=== PATIENT | female | born 1985 | race Caucasian/White ===

== ENCOUNTER 2016-12-13 14:54 | Inpatient (IN) | payer BC ==
[~2016-12-13] VITALS: Ht 180.3 cm; Wt 113.0 kg
[~2016-12-13 14:54] MED LIST: AMOX500C6; HYDR-1666; OMEP-28; SUCR1ORA
[2016-12-13 15:56] VITALS: Ht 180.3 cm; Wt 113.0 kg
[2016-12-13] MEDS ORDERED: ONDANSETRON 4 MG TAB PO PRN (16:30)
[2016-12-13] MEDS ORDERED: morphine 4 MG/ML VIAL IV PRN (16:30)
[2016-12-13] MEDS ORDERED: HYDROCODONE/APAP (5/325) TAB PO PRN (16:30)
[2016-12-13] MEDS ORDERED: DOCUSATE SODIUM 100 MG CAP PO PRN (16:30)
[2016-12-13] MEDS ORDERED: NACL 0.9% 3 ML SYG IV SCH (16:30)
[2016-12-13 16:59] VITALS: BP 131/76; RESP 22
[2016-12-13] MEDS ORDERED: VANCOMYCIN IV PER PHARMACY XX SCH (17:00)
[2016-12-13] MEDS ORDERED: LORAZEPAM 0.5 MG TAB PO PRN (17:00)
[2016-12-13] MEDS: AMPICILLIN/SULB 3 GM/NS (PMX) 100 ML IVPB SCH (17:53)
[2016-12-13] MEDS: ACETAMINOPHEN 325 MG TAB PO PRN (18:00)
[2016-12-13] MEDS ORDERED: VANCOMYCIN 2 GM in SOD CHLORIDE 0.9% 500 ML IVPB SCH (18:15)
[2016-12-13 18:40] LABS: BASOPHILS % 0.3 % (0.0-2.0); EOSINOPHILS # 0.1 10^3/ul (0.0-0.5); EOSINOPHILS % 1.3 % (0.0-7.0); HEMOGLOBIN 12.2 g/dl (12.0-16.0); LYMPHOCYTES # 2.1 10^3/ul (0.8-2.9); LYMPHOCYTES % 27.3 % (15.0-51.0); MEAN CORPUSCULAR HEMOGLOBIN 28.6 pg (29.0-33.0); MEAN CORPUSCULAR VOLUME 86.7 fl (82.0-101.0); MEAN PLATELET VOLUME 9.6 fl (7.4-10.4); MONOCYTE # 0.4 10^3/ul (0.3-0.9); MONOCYTES % 5.2 % (0.0-11.0); NEUTROPHILS % 65.6 % (39.0-77.0); PLATELET COUNT 281 10^3/UL (140-415); RED BLOOD COUNT 4.27 10^6/ul (4.20-5.40); RED CELL DISTRIBUTION WIDTH 13.1 % (11.5-14.5); WHITE BLOOD COUNT 7.6 10^3/ul (4.8-10.8)
[2016-12-13 19:07] LABS: ALBUMIN 4.2 g/dl (3.3-4.9); ALBUMIN/GLOBULIN RATIO 1.16; BILIRUBIN,INDIRECT 0.2 mg/dl (0-1.1); BILIRUBIN,TOTAL 0.2 mg/dl (0.2-1.3); CALCIUM 8.9 mg/dl (8.4-10.2); CREATININE 0.72 mg/dl (0.44-1.00); MAGNESIUM 2.1 mg/dl (1.7-2.5); POTASSIUM 4.6 mmol/L (3.5-5.1); TOTAL PROTEIN 7.8 g/dl (6.1-8.1)
--- NOTE | 2016-12-13 19:07 | RADRPT ---
PROCEDURE: Ultrasound right wrist. CLINICAL INDICATION: Right wrist pain and swelling, status post fog bite. TECHNIQUE: Prajapati scale and color flow images of the left wrist were obtained. COMPARISON: None available FINDINGS: A 1.9 x 0.9 x 1.5 cm heterogeneously hypoechoic potential collection is identified in the subcutaneo us soft tissues of the wrist in the region of the patient's dog bite. Soft tissue edema in this [place] on is observed. The visualized right radial artery appears patent. IMPRESSION: 1.9 cm heterogeneously hypoechoic, potential collection in the subcutaneous soft tissues in the [place] on of the patient's dog bite. This might could reflect a soft tissue hematoma. Superimposed infect ion cannot be excluded. Soft tissue edema over the wrist. If further characterization is needed CT or MRI could be helpful. RPTAT: AA .Haile Duke MD, Date Time Electronically viewed and signed by .Haile Duke MD, on 12/13/2016 19:06 .P/
[2016-12-13 19:24] LABS: T3 UPTAKE 32.8 % (23.5-40.5)
[2016-12-13 19:38] LABS: THYROID STIMULATING HORMONE 0.72 MIU/L (0.465-4.680)
[2016-12-13 20:00] VITALS: BP 121/69; RESP 16
[2016-12-14] MEDS: AMPICILLIN/SULB 3 GM/NS (PMX) 100 ML IVPB SCH ×4 (00:24→21:39)
[2016-12-14] MEDS: DIPHENHYDRAMINE 25 MG CAP PO PRN ×2 (01:15→22:22)
[2016-12-14 02:36] VITALS: BP 119/55; RESP 16
[2016-12-14] MEDS: VANCOMYCIN 1.25 GM in SOD CHLORIDE 0.9% 250 ML IVPB SCH ×2 (04:36→11:13)
[2016-12-14 07:42] VITALS: BP 134/78; RESP 18
[2016-12-14] MEDS ORDERED: morphine 2 MG INJ IV PRN (11:00)
--- NOTE | 2016-12-14 13:55 | PN ---
DATE: 12/14/2016 SUBJECTIVE DATA: The patient has less pain, right wrist. No fever or chills. OBJECTIVE DATA: Temperature 98.2, blood pressure 134/78, O2 sat 97 percent. Chest clinically clear. Right wrist shows swelling of the right wrist with moderate tenderness. No discharge. LABORATORY AND DIAGNOSTIC DATA: WBC count is 7.6, hematocrit 37, platelet count is 281,000. Ultrasound of the right wrist shows a 1.9 cm fluid collection, soft-tissue hematoma likely. Soft- tissue edema over the wrist. IMPRESSION: 1. Status post dog bite with cellulitis, right wrist, query abscess. Patient tolerating vancomycin and Unasyn well. 2. Prediabetic state with a hemoglobin A1c of 6.6 and strong family history of diabetes mellitus. PLAN: Had a long discussion with the patient regarding the diet and the need to lose weight and needs to get started on metformin. Potential complication of diabetes including neuropathy, retinopathy, renal failure, strokes discussed the patient. The patient's dietary habits reviewed and appropriate suggestions made. Will follow up with a dietary consultation in due course. Continue IV antibiotics for now. Await for blood cultures and wound cultures. Dictated By: Jose Naylor MD /rosy/rochelle /Document#: [id number]
[2016-12-14 14:00] VITALS: BP 121/69; RESP 18
--- NOTE | 2016-12-14 14:24 | CONS ---
Date/Time of Note Date/Time of Note DATE: 12/14/16 TIME: 14:12 Assessment/Plan Assessment/Plan Additional Assessment/Plan 31y/o female with: 1. Dog bite on anterior right wrist, improved. No evidence of joint infection and it appears to have been controlled on Augmentin, or at least significantly improved overnight on vancomycin and Unasyn. Patient states that it has been improving with decreased pain and erythema since initiation of Augmentin. I do not see anything that requires drainage. Would favor continued clinical monitoring. 2. Pre-diabetes. patient is aware, as per Dr. Naylor. RECOMMENDATIONS: 1. May discharge to home when Dr. Naylor is comfortable with discharge 2. Continue UNASYN 3g IV q6h while hospitalized 3. Transition back to AUGMENTIN 875mg PO BID to complete a further seven days of therapy at discharge 4. Discontinue vancomycin now (done) Consultation Date/Type/Reason Admit Date/Time Dec 13, 2016 at 15:17 Date of Consultation: Dec 14, 2016 Type of Consultation: Infectious Diseases Reason for Consultation Dog bite Referring Provider: CHARLIE NAYLOR MD Hx of Present Illness Ms. Clifford is a 31y/o female without PMH who was bitten by a dog about 6 days prior to admission. Approximately 4 hours after the bite to the right wrist, the pain increased to the point that she sought treatment at an where she was prescribed Augmentin. She saw her PMD Dr. Naylor five days prior to admission and again the day of admission. He was concerned that the wound had not improved significantly and admitted the patient for IV antibiotics. 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 She now has normal ROM and minimal pain at the bite site with ROM. She may have had some purulent drainage from the puncture wounds earlier in the week, now unsure. Has been dressing with neosporin. Denies F, C, myalgia, arthralgia (outside of affected joint), N, V, D, anorexia, ANGELES, cough, CP, rash. Of note, her HgA1C is elevated. 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 Exam/Review of Systems Vital Signs Vitals Vital Signs Date Time Temp Pulse Resp B/P Pulse Ox O2 Delivery O2 Flow Rate FiO2 12/14/16 07:42 98.2 79 18 134/78 97 Intake and Output 12/13/16 12/13/16 12/14/16 15:00 23:00 07:00 Intake Total 600 ml 1550 ml Output Total 400 ml Balance 600 ml 1150 ml Exam Constitutional: alert, oriented, well developed Psych: nl mood/affect, no complaints Head: atraumatic, normocephalic Eyes: EOMI, PERRL, nl conjunctiva, nl lids, nl sclera ENMT: nl external ears & nose, nl lips & teeth, nl nasal mucosa & septum Neck: non-tender, supple Respiratory: clear to auscultation, normal air movement Cardiovascular: nl pulses, regular rate and rhythm Gastrointestinal: nl liver, spleen, non-tender, soft Musculoskeletal: nl extremities to inspection, nl gait and stance Extremities: normal pulses Neurological: TAX ADVISOR II-XII intact, nl mental status, nl speech, nl strength Skin: nl turgor, No rash or lesions Lymph: nl lymph nodes Additional Comments right wrist - two puncture wounds anteriorly with minimal fluctuance below but an area of induration or hardening SQ, unable to express any purulence, blood or serous fluid from the puncture wounds. There is no surrounding erythema, a line drawn further up arm denotes area of prior erythema extension. No irritability of the wrist or fingers nor elbow, no e/o lymphangitis. Results Result Diagram: 12/13/16182812/13/161828 Results 24 hrs Laboratory Tests Test 12/13/16 18:29 White Blood Count 7.6 Red Blood Count 4.27 Hemoglobin 12.2 Hematocrit 37.0 Mean Corpuscular Volume 86.7 Mean Corpuscular Hemoglobin 28.6 L Mean Corpuscular Hemoglobin Concent 33.0 Red Cell Distribution Width 13.1 Platelet Count 281 Mean Platelet Volume 9.6 Neutrophils % 65.6 Lymphocytes % 27.3 Monocytes % 5.2 Eosinophils % 1.3 Basophils % 0.3 Nucleated Red Blood Cells % 0.0 Neutrophils # 5.0 Lymphocytes # 2.1 Monocytes # 0.4 Eosinophils # 0.1 Basophils # 0.0 Nucleated Red Blood Cells # 0.0 Sodium Level 141 Potassium Level 4.6 Chloride Level 101 Carbon Dioxide Level 23 Anion Gap 22 H Blood Urea Nitrogen 12 Creatinine 0.72 Glucose Level 141 Hemoglobin A1c 6.2 H Calcium Level 8.9 Magnesium Level 2.1 Total Bilirubin 0.2 Direct Bilirubin 0.00 Indirect Bilirubin 0.2 Aspartate Amino Transf (AST/SGOT) 42 Alanine Aminotransferase (ALT/SGPT) 34 Alkaline Phosphatase 58 Total Protein 7.8 Albumin 4.2 Globulin 3.60 H Albumin/Globulin Ratio 1.16 Thyroid Stimulating Hormone (TSH) 0.720 Free Thyroxine Index 2.85 Thyroxine (T4) 8.7 Triiodothyronine (T3) Uptake 32.8 Medications Medications Current Medications Ondansetron HCl (Zofran Tab) 4 mg Q6H PRN PO NAUSEA AND/OR VOMITING; Start 12/13 at 16:30 Acetaminophen (Tylenol Tab) 650 mg Q6H PRN PO PAIN LEVEL 1-3 OR FEVER Last administered on 12/13/16 18:00; Admin Dose 650 MG; Start 12/13/16 at 16:30 Acetaminophen/ Hydrocodone Bitart ([place] (5/325)) 1 tab Q6H PRN PO MODERATE PAIN LEVEL 4-6; Start 12/13/16 at 16:30 Docusate Sodium (Colace) 100 mg Q12H PRN PO CONSTIPATION; Start 12/13/16 at 16: 30 Lorazepam 0.5 mg 0.5 mg QID PRN PO ANXIETY Last administered on 12/13/16 22:01 ; Admin Dose 0.5 MG; Start 12/13/16 at 17:00 Vancomycin HCl/ Sodium Chloride (Vancocin/NS) 250 ml @ 83.333 mls/ hr Q8H IVPB Last administered on 12/14/16 11:13; Admin Dose 83.333 MLS/HR; Start 12/14/16 at 03:00 Diphenhydramine HCl (Benadryl) 25 mg Q4H PRN PO ITCHING Last administered on 01:15; Admin Dose 25 MG; Start 12/14/16 at 01:00 Morphine Sulfate 2 mg 2 mg Q4H PRN IV SEVERE PAIN LEVEL 7-10; Start 12/14/16 at 11:00 Ampicillin Sodium/ Sulbactam Sodium (Unasyn 3gm/NS (Pmx)) 100 ml @ 100 mls/hr QID@02,08,14,22 IVPB ; Start 12/14/16 at 14:00 Miscellaneous Information (*Rx Drug Level Order Reminder*) VANCO TROUGH @ 1, 800 ON... ONCE ONCE XX ; Start 12/14/16 at 18:00; Stop 12/14/16 at 18:01 Procedures Procedures ultrasoundofthe wristreviewed RADHA HERNDON Dec 14, 2016 14:24
--- NOTE | 2016-12-14 15:59 | HP ---
DATE OF ADMISSION: 12/13/2016 HISTORY OF PRESENT ILLNESS: The patient is a 31-year-old lady well known to me from previous outpatient follow up, presenting with right wrist wound with failed outpatient treatment following a dog bite. The patient was trying to break up a fight between her dog and another dog about 6 days ago and 1 of the dogs bit her right wrist. The patient was subsequently seen in the urgent care and placed on amoxicillin 500 mg t.i.d., and the patient was seen in my office 3 days ago and was advised to continue the same medication. When seen today, she had more swelling and pain of the right wrist with erythema, and patient was directly admitted for failed outpatient treatment and for further evaluation of the wound and for parenteral antibiotics after cultures. The patient has a history of bronchial asthma. REVIEW OF SYSTEMS: HEAD: No history of headache numbness. EYES: No blurry vision or glaucoma. ENT: Noncontributory. NECK: No history of thyroid disease. CHEST: No bronchitis, hay fever, asthma. The patient does not smoke. HEART: No PND, orthopnea, palpitations. GASTROINTESTINAL: No constipation, diarrhea, change of bowel habits. GENITOURINARY: No dysuria, hematuria, kidney stones. Last menstrual period 2 days ago. PAST SURGICAL HISTORY: None. ALLERGIES: NO KNOWN ALLERGIES. HABITS: Does not smoke or drink. The patient has gained 30 plus pounds in the last 2 years. FAMILY HISTORY: Positive for diabetes in her mother. Her father of biliary duct carcinoma at age 55. Two brothers and 2 sisters, 1 sister has pre-diabetes and hypothyroidism. PHYSICAL EXAMINATION: GENERAL: The patient is a very pleasant lady, presently in no acute distress. VITAL SIGNS: Temperature is 99.1, blood pressure 130/80, respiratory 20 per minute. HEENT: Head normocephalic. No pallor, cyanosis, or icterus. Tongue is moist. NECK: Supple. No thyromegaly, bruits, or lymphadenopathy. CHEST: Clinically clear. HEART: S1, S2. No murmurs or gallops. ABDOMEN: Soft, nontender. No hepatosplenomegaly. EXTREMITIES: No edema. Pedal pulsations 2 plus bilaterally. Homans sign is negative. Examination of the right wrist shows area of skin bite about 1 cm in length with minimal drainage, moderate induration with no definite fluctuance noted. Movement of the fingers within normal limits. Some limitation of the flexion of the wrist noted. NEUROLOGIC: No localizing or lateralizing signs. LABORATORY DATA: All pending. IMPRESSION: 1. Status post dog bite to the right wrist with cellulitis, doubt an underlying abscess. 2. Recent weight gain with strong family history of diabetes, possible pre-diabetes to be considered. 3. Mild obesity. PLAN: The patient will be admitted to the medical floor. Start the patient on intravenous Unasyn and vancomycin. Will obtain ultrasound of the right wrist to rule out an abscess collection. Will request Dr. Haynes and Dr. Burt for ID consultation. Observe closely for signs of sepsis. Wound culture will be obtained, after which wound dressing with peroxide and antibiotic ointment. Dictated By: Jose Naylor MD /rosy/wilber /Document#: [id number]
[2016-12-14 20:00] VITALS: BP 134/77; RESP 18
[2016-12-15] MEDS: AMPICILLIN/SULB 3 GM/NS (PMX) 100 ML IVPB SCH ×3 (02:21→14:47)
[2016-12-15 02:51] VITALS: BP 145/73; RESP 16
[2016-12-15 07:58] VITALS: BP 128/85; RESP 16
[2016-12-15] MEDS: ACETAMINOPHEN 325 MG TAB PO PRN (09:09)
--- NOTE | 2016-12-15 13:33 | DS ---
DATE OF ADMISSION: 12/13/2016 DATE OF DISCHARGE: SUBJECTIVE: The patient continues to have mild pain. No fever or chills. PHYSICAL EXAM: Patient is awake, alert. Temperature 98.5, blood pressure 128/85, O2 sat 96 on room air. Head normocephalic. No edema of extremities. Right wrist with decreased swelling. Dr. Burt's ID consultation greatly appreciated. FINAL DIAGNOSES: 1. Status post dog bite, right anterior wrist with hematoma, improving. 2. Prediabetes. PLAN: Per recommendations of Dr. Burt's, will discontinue IV antibiotics and start her on Augmentin 875 mg p.o. b.i.d. for one week. The patient has been advised to rest at home for next three days. Follow up in my office. Also start the patient on metformin 500 mg p.o. q.day. Adequate diabetic diet instructions have been given and the need for weight loss. The patient understands and will follow. As outpatient, will also arrange to get a glucometer. Dictated By: Jose Naylor MD /rosy/rochelle /Document#: [id number]
[2016-12-15 14:00] VITALS: BP_SYST 113; BP_SYST 128; BP_DIAS 63; BP_DIAS 70; RESP 18
--- NOTE | 2016-12-15 15:12 | CONS ---
Date/Time of Note Date/Time of Note DATE: 12/15/16 TIME: 15:10 Assessment/Plan Assessment/Plan Chief Complaint/Hosp Course Ms. Clifford is a 31y/o female without PMH who was bitten by a dog about 6 days prior to admission. Approximately 4 hours after the bite to the right wrist, the pain increased to the point that she sought treatment at an where she was prescribed Augmentin. She saw her PMD Dr. Naylor five days prior to admission and again the day of admission. He was concerned that the wound had not improved significantly and admitted the patient for IV antibiotics. 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 She now has normal ROM and minimal pain at the bite site with ROM. She may have had some purulent drainage from the puncture wounds earlier in the week, now unsure. Has been dressing with neosporin. Denies F, C, myalgia, arthralgia (outside of affected joint), N, V, D, anorexia, ANGELES, cough, CP, rash. Of note, her HgA1C is elevated. 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 Problems: Additional Assessment/Plan 31y/o female with: 1. Dog bite on anterior right wrist, improved. Significant clinical improvement. Cultures are negative to date. 2. Pre-diabetes. patient is aware, as per Dr. Naylor. RECOMMENDATIONS: 1. AUGMENTIN 875mg PO BID to complete a further seven days of therapy at discharge 2. Outpatient follow-up with Dr. Naylor Thank you very much for allowing me to participate in the care of your patient. Consultation Date/Type/Reason Admit Date/Time Dec 13, 2016 at 15:17 Initial Consult Date 12/14/16 Type of Consultation: Infectious Diseases Referring Provider: CHARLIE NAYLOR MD 24 HR Interval Summary Free Text/Dictation Afebrile overnight. Wrist has substantially improved in appearance overnight. Patient reports decreased discomfort Exam/Review of Systems Vital Signs Vitals Vital Signs Date Time Temp Pulse Resp B/P Pulse Ox O2 Delivery O2 Flow Rate FiO2 12/15/16 07:58 98.5 66 16 128/85 96 Intake and Output 12/14/16 12/14/16 12/15/16 15:00 23:00 07:00 Intake Total 350 ml 1860 ml 100 ml Balance 350 ml 1860 ml 100 ml Exam Constitutional: alert, oriented, well developed Psych: nl mood/affect, no complaints Head: atraumatic, normocephalic Eyes: EOMI, PERRL, nl conjunctiva, nl lids, nl sclera ENMT: nl external ears & nose, nl lips & teeth, nl nasal mucosa & septum Neck: non-tender, supple Respiratory: clear to auscultation, normal air movement Cardiovascular: nl pulses, regular rate and rhythm Gastrointestinal: nl liver, spleen, non-tender, soft Musculoskeletal: nl extremities to inspection, nl gait and stance Extremities: normal pulses Neurological: COMBAT ENGINEER II-XII intact, nl mental status, nl speech, nl strength Skin: nl turgor, No rash or lesions Lymph: nl lymph nodes Additional Comments right wrist - two puncture wounds anteriorly without fluctuance or induration, minimal blanching erythema of about 2cm linear area between punctures, unable to express any purulence, blood or serous fluid from the puncture wounds. No irritability of the wrist or fingers nor elbow, no e/o lymphangitis. Results Result Diagram: 12/13/16 1829 12/13/16 1829 Medications Medications Current Medications Ampicillin Sodium/ Sulbactam Sodium (Unasyn 3gm/NS (Pmx)) 100 ml @ 100 mls/hr QID@02,08,,22 IVPB Last administered on 12/15/16t 14:47; Admin Dose 100 MLS/HR ; Start 12/14/16 at 14:00; Stop 12/15/16 at 17:00 RADHA HERNDON Dec 15, 2016 15:12
== END 2016-12-15 17:45 | disposition home or self-care (01) | DRG 603 ==
LOC: MS2 15:17
PROVIDERS: ADMIT Internal Medicine; ATTEND Internal Medicine
DX: L03.113 Cellulitis of right upper limb (principal); E66.9 Obesity, unspecified; L02.413 Cutaneous abscess of right upper limb; R73.03 Prediabetes; S61.551D Open bite of right wrist, subsequent encounter; Z68.34 Body mass index [BMI] 34.0-34.9, adult
CPT/HCPCS: 76536; 80053; 83036; 83735; 84436; 84443; 84479; 85025; 87040; 87070; J0295; J3370; J7040; J7050

== ENCOUNTER → 2017-07-07 | Outpatient (CLI) | END | disposition home or self-care (01) ==

== ENCOUNTER → 2018-12-02 | Outpatient (CLI) | payer BC | END | disposition home or self-care (01) | LOC: LAB 09:48 → EEVIPCON 09:48 | PROVIDERS: ATTEND Internal Medicine | DX: R73.03 Prediabetes (principal); E78.5 Hyperlipidemia, unspecified; E55.9 Vitamin D deficiency, unspecified; N39.0 Urinary tract infection, site not specified | CPT/HCPCS: 80053; 80061; 81001; 82306; 83036; 84436; 84443; 85025; 87086 ==